=== PATIENT | female | born 1980 | race Caucasian/White ===

== ENCOUNTER 2018-04-02 17:24 | Emergency (ER) | payer OTHER ==
[2018-04-02 18:10] VITALS: BP 143/96; PULSE 96; TEMP 99; BMI 32.4
--- NOTE | 2018-04-02 18:43 | PDOC ---
History of Present Illness - General Chief Complaint: Pain Stated Complaint: FACIAL PAIN Time Seen by Provider: 04/02/18 18:13 - History of Present Illness Initial Comments: 38-year-old female without any comorbidities presents for evaluation of one day' s worth of left-sided jaw pain. She is unsure of any exacerbating or relieving factors. 04/02/18 18:38 Past History - Past Medical History Allergies/Adverse Reactions: Allergies Allergy/AdvReac Type Severity Reaction Status Date / Time No Known Allergies Allergy Verified 04/02/18 18:06 Home Medications: Ambulatory Orders Ibuprofen [Motrin -] 600 mg PO TID #30 tablet 04/02/18 Lisinopril [Prinivil] 10 mg PO ASDIR 04/02/18 COPD: No HTN: Yes - Suicide/Smoking/Psychosocial Hx Smoking History: Never smoked Hx Alcohol Use: No Drug/Substance Use Hx: No Substance Use Type: None Review of Systems - Review of Systems Comments:: GENERAL/CONSTITUTIONAL: No fever or chills. No weakness. No weight change. HEAD, EYES, EARS, NOSE AND THROAT: No change in vision. No ear pain or discharge. No sore throat. Left-sided TMJ pain. CARDIOVASCULAR: No chest pain or shortness of breath. RESPIRATORY: No cough, wheezing, or hemoptysis. GASTROINTESTINAL: No nausea, vomiting, diarrhea or constipation. No rectal bleeding. GENITOURINARY: No dysuria, frequency, or change in urination. MUSCULOSKELETAL: No joint or muscle swelling or pain. No neck or back pain. SKIN AND BREASTS: No rash or easy bruising. NEUROLOGIC: No headache, vertigo, loss of consciousness, or loss of sensation. PSYCHIATRIC: No depression or anxiety. ENDOCRINE: No increased thirst. No abnormal weight change. HEMATOLOGIC/LYMPHATIC: No anemia, easy bleeding, or history of blood clots. ALLERGIC/IMMUNOLOGIC: No hives or skin allergy. No latex allergy. 04/02/18 18:38 *Physical Exam - Vital Signs Last Vital Signs Temp Pulse Resp BP Pulse Ox 99.0 F 96 H 20 143/96 97 04/02/18 18:06 04/02/18 18:06 04/02/18 18:06 04/02/18 18:06 04/02/18 18:06 - Physical Exam Comments: GENERAL: The patient is awake, alert, and fully oriented, in no acute distress. HEAD: Normal with no signs of trauma. EYES: Pupils equal, round and reactive to light, extraocular movements intact, sclera anicteric, conjunctiva clear. ENT: Ears normal, nares patent, oropharynx clear without exudates. Moist mucous membranes. There is tenderness over the left TMJ. There is operable clicking with opening of the mouth. There is full range of motion of the TMJ. NECK: Normal range of motion, supple without lymphadenopathy, JVD, or masses. LUNGS: Breath sounds equal, clear to auscultation bilaterally. No wheezes, and no crackles. HEART: Regular rate and rhythm, normal S1 and S2 without murmur, rub or gallop. ABDOMEN: Soft, nontender, normoactive bowel sounds. No guarding, no rebound. No masses. EXTREMITIES: Normal range of motion, no edema. No clubbing or cyanosis. No cords, erythema, or tenderness. NEUROLOGICAL: Cranial nerves II through XII grossly intact. Normal speech, normal gait. PSYCH: Normal mood, normal affect. SKIN: Warm, Dry, normal turgor, no rashes or lesions noted. 04/02/18 18:39 Medical Decision Making - Medical Decision Making This is most likely TMJ. I will have her follow-up with ENT. 04/02/18 18:41 *DC/Admit/Observation/Transfer Diagnosis at time of Disposition: TMJ click - Discharge Dispostion Disposition: HOME Condition at time of disposition: Stable Decision to Admit order: No - Referrals Referrals: Pee Pino [Primary Care Provider] - Geovanny Beck MD [Staff Physician] - - Patient Instructions Printed Discharge Instructions: Temporomandibular Disorder, DI for Temporomandibular Disorder Additional Instructions: Follow-up with ear nose and throat doctor as advised. Return to the emergency room if symptoms do not resolve prior to follow-up in 1-2 days with her primary care doctor as well as your ear nose and throat doctor I have recommended for you. I prescribed him Motrin for pain please take as directed with food. - Post Discharge Activity
== END 2018-04-02 18:45 | disposition home or self-care (01) ==
LOC: JERFT 17:24
DX: M26.69 Other specified disorders of temporomandibular joint (principal); I10 Essential (primary) hypertension
CPT/HCPCS: 99281-25

== ENCOUNTER 2021-06-13 04:31 | Day surgery (SDC) | payer OTHER ==
[2021-06-09 17:34] VITALS: BMI 32.4
[2021-06-13] MEDS ORDERED: IBUPROFEN 800 MG/8 ML IJ IVPB PRN (13:36)
[2021-06-13] MEDS ORDERED: ONDANSETRON 4 MG/2 ML VIAL IVPUSH PRN (13:36)
[2021-06-13] MEDS ORDERED: oxyCODONE HCL 5 MG TABLET PO PRN (13:36)
[2021-06-13] MEDS ORDERED: IBUPROFEN 600 MG TABLET (FP) PO PRN (13:36)
[2021-06-13] MEDS ORDERED: ELECTROLYTE-148 SOLN 1,000 ML IV SCH (13:45)
[2021-06-13] MEDS ORDERED: LACTATED RINGERS SOLUTION 1,000 ML IV SCH (14:30)
[2021-06-13 17:32] VITALS: BP 120/70; PULSE 80; TEMP 98
== END 2021-06-13 16:15 | disposition home or self-care (01) ==
LOC: JASU-SURG 04:31
PROVIDERS: ATTEND Obstetrics & Gynecology
PROC: 0UJD8ZZ Inspection of Uterus and Cervix, Via Natural or Artificial Opening Endoscopic (ICD-10-PCS; 2021-06-13)
PROC: 0UB97ZX Excision of Uterus, Via Natural or Artificial Opening, Diagnostic (ICD-10-PCS; principal; 2021-06-13 11:00)
PROC: 0UDB7ZX Extraction of Endometrium, Via Natural or Artificial Opening, Diagnostic (ICD-10-PCS; 2021-06-13 11:00)
DX: N92.1 Excessive and frequent menstruation with irregular cycle (principal); D64.9 Anemia, unspecified; N84.0 Polyp of corpus uteri
CPT/HCPCS: 81025; 88305-TC; 94760

== ENCOUNTER 2022-05-01 04:24 | Inpatient (IN) | payer OTHER ==
[2022-05-10 17:51] VITALS: BMI 34.3
[2022-05-15] MEDS ORDERED: BUPIVACAINE LIPOSOME/PF (EXPAREL) 266 MG/20 ML VIAL ONE (10:00)
[2022-05-15] MEDS ORDERED: BUPIVACAINE HCL/PF 0.25% (2.5MG/ML) 10 ML VIAL ONE (10:00)
[2022-05-15] MEDS ORDERED: MIDAZOLAM HCL 2 MG/2 ML SINGLE DOSE VIAL ONE ×2 (10:13)
[2022-05-15] MEDS ORDERED: PROPOFOL 20 ML ONE (10:13)
[2022-05-15] MEDS ORDERED: LIDOCAINE HCL/PF 2% SDV 5ML VIAL ONE (10:14)
[2022-05-15] MEDS ORDERED: ROCURONIUM BROMIDE 100 MG/10 ML VIAL ONE (10:16)
[2022-05-15] MEDS ORDERED: ONDANSETRON 4 MG/2 ML VIAL ONE (10:51)
[2022-05-15] MEDS ORDERED: DEXAMETHASONE SOD PHOSPHATE 4 MG/1 ML VIAL ONE (10:51)
[2022-05-15] MEDS ORDERED: ceFAZolin SODIUM 1 GM VIAL ONE (10:51)
[2022-05-15] MEDS ORDERED: ceFAZolin SODIUM 1 GM VIAL IVPB ONE (10:52)
[2022-05-15] MEDS ORDERED: KETOROLAC TROMETHAMINE 30 MG/1 ML VIAL ONE (12:14)
[2022-05-15] MEDS ORDERED: NEOSTIGMINE METHYLSULFATE 0.5 MG/ML - 10 ML MDV ONE (12:22)
[2022-05-15] MEDS ORDERED: GLYCOPYRROLATE 0.2 MG/1 ML VIAL ONE (12:22)
[2022-05-15] MEDS ORDERED: IBUPROFEN 800 MG/8 ML IJ IVPB PRN (12:32)
[2022-05-15] MEDS ORDERED: IBUPROFEN 600 MG TABLET (FP) PO PRN (12:32)
[2022-05-15] MEDS ORDERED: ONDANSETRON 4 MG/2 ML VIAL IVPUSH PRN (12:32)
[2022-05-15] MEDS ORDERED: oxyCODONE HCL 5 MG TABLET PO PRN ×3 (12:32→13:33)
[2022-05-15] MEDS ORDERED: ALBUTEROL SO4 HFA INHALER IH PRN (12:34)
[2022-05-15] MEDS ORDERED: ACETAMINOPHEN 1000 MG/100 ML BAG IVPB PRN (12:35)
[2022-05-15] MEDS ORDERED: ELECTROLYTE-148 SOLN 1,000 ML IV SCH (12:45)
[2022-05-15] MEDS ORDERED: FENTANYL CITRATE/PF 50 MCG/ML VIAL ONE ×2 (13:24→13:30)
[2022-05-15] MEDS ORDERED: HYDROmorphone HCl 2 MG/ML VIAL IVPUSH ONE (13:37)
[2022-05-15] MEDS ORDERED: HYDROmorphone HCl 2 MG/ML VIAL ONE (13:38)
[2022-05-15] MEDS: HYDROmorphone HCL CARPU-JECT 2 MG/1 ML DISP.SYRIN IVPUSH ONE ×2 (13:40→19:59)
[2022-05-15] MEDS ORDERED: LACTATED RINGERS SOLUTION 1,000 ML IV SCH (13:45)
[2022-05-15] MEDS: oxyCODONE HCL 5 MG TABLET PO PRN ×2 (17:52→23:19)
[2022-05-15] MEDS: CEFAZOLIN 2 GM in DEXTROSE 5%-WATER - 100 ML IVPB SCH (18:41)
[2022-05-16] MEDS: CEFAZOLIN 2 GM in DEXTROSE 5%-WATER - 100 ML IVPB SCH (01:28)
[2022-05-16 08:17] LABS: HEMATOCRIT 25.9 % (32.4-45.2); MCH 22.7 pg (25.7-33.7); MEAN CELL VOLUME 73.4 fl (80-96); PLATELET COUNT 455 10^3/uL (134-434); RBC 3.54 M/mm3 (3.60-5.2); RDW 18.7 % (11.6-15.6); WHITE BLOOD COUNT 9.2 K/mm3 (4.0-10.0)
[2022-05-16] MEDS: ENOXAPARIN NA (PORCINE) 40 MG/0.4 ML DISP.SYRIN SQ SCH (09:15)
[2022-05-16 09:54] LABS: BLOOD UREA NITROGEN 7.8 mg/dL (7-18); CALCIUM 8.7 mg/dL (8.5-10.1)
[2022-05-16 09:58] LABS: CREATININE 0.5 mg/dL (0.55-1.3)
[2022-05-16] MEDS ORDERED: HYDROCHLOROTHIAZIDE 25 MG TABLET (FP) PO SCH (10:00)
[2022-05-16] MEDS ORDERED: PATIENT'S OWN MEDICATION (NON-FORMULARY) (Losartan/Hydrochlorothiazide [Losartan-Hctz 100- PO SCH (10:00)
[2022-05-16] MEDS ORDERED: LOSARTAN POTASSIUM 50 MG TABLET PO SCH (10:00)
[2022-05-16] MEDS ORDERED: METOPROLOL TARTRATE 50 MG TABLET (FP) PO SCH (10:00)
[2022-05-16] MEDS: ACETAMINOPHEN 500 MG TABLET (FP) PO SCH ×2 (12:54→19:36)
[2022-05-16 22:24] VITALS: TEMP 98.9
[2022-05-17] MEDS: ACETAMINOPHEN 500 MG TABLET (FP) PO SCH ×2 (01:48→09:27)
[2022-05-17] MEDS: ENOXAPARIN NA (PORCINE) 40 MG/0.4 ML DISP.SYRIN SQ SCH (09:27)
[2022-05-17 09:37] VITALS: BP 130/81; PULSE 78
== END 2022-05-17 09:35 | disposition home or self-care (01) | DRG 513 ==
LOC: UNDOADMIN 04:24 → J2C 04:24 → J3W 05-15 14:28
PROVIDERS: ADMIT Obstetrics & Gynecology; ATTEND Obstetrics & Gynecology
PROC: 0DNW0ZZ Release Peritoneum, Open Approach (ICD-10-PCS; 2022-05-15)
PROC: 0UT70ZZ Resection of Bilateral Fallopian Tubes, Open Approach (ICD-10-PCS; 2022-05-15)
PROC: 0UT90ZL Resection of Uterus, Supracervical, Open Approach (ICD-10-PCS; principal; 2022-05-15 10:00)
DX: N92.1 Excessive and frequent menstruation with irregular cycle (principal); D25.9 Leiomyoma of uterus, unspecified; N73.6 Female pelvic peritoneal adhesions (postinfective)
CPT/HCPCS: 36415; 80048; 81025; 85027; 86850; 86900; 86901; 86922; 94010; 94760

== ENCOUNTER 2022-06-01 03:42 | Emergency (ER) | payer OTHER ==
[2022-06-01 04:08] VITALS: RESP 20; TEMP 98.2; BMI 34.0
[2022-06-01] MEDS ORDERED: ACETAMINOPHEN 1000 MG/100 ML BAG IVPB ONE (04:17)
[2022-06-01] MEDS ORDERED: SODIUM CHLORIDE 0.9% 500 ML INFUS.BAG IV ONE (04:17)
[2022-06-01] MEDS ORDERED: ACETAMINOPHEN INJECTION 100 ML IVPB ONE (04:33)
[2022-06-01] MEDS ORDERED: CEPHALEXIN MONOHYDRATE 500 MG CAPSULE (UD) PO ONE (04:58)
[2022-06-01 05:39] LABS: EOS % 2.7 % (0-4.5); HEMATOCRIT 29.2 % (32.4-45.2); HEMOGLOBIN 9.2 GM/dL (10.7-15.3); MCH 23.1 pg (25.7-33.7); MCHC 31.4 g/dl (32.0-36.0); MEAN CELL VOLUME 73.6 fl (80-96); MEAN PLT VOLUME 8.2 fl (7.5-11.1); MONO % 6.7 % (3.8-10.2); NEUT % 57.6 % (42.8-82.8); PLATELET COUNT 444 10^3/uL (134-434); RBC 3.97 M/mm3 (3.60-5.2); RDW 20.5 % (11.6-15.6)
[2022-06-01] MEDS ORDERED: CEPHALEXIN MONOHYDRATE 500 MG CAPSULE (UD) ONE (05:45)
[2022-06-01 06:03] LABS: ALBUMIN 3.4 g/dl (3.4-5.0); BLOOD UREA NITROGEN 16.5 mg/dL (7-18); CALCIUM 9.4 mg/dL (8.5-10.1)
[2022-06-01 06:06] LABS: CREATININE 0.5 mg/dL (0.55-1.3)
[2022-06-01 06:08] LABS: BILIRUBIN,TOTAL 0.3 mg/dL (0.2-1); TOT PROT 7.7 g/dl (6.4-8.2)
[2022-06-01 06:36] VITALS: BP 118/53; PULSE 65
[2022-06-01 09:19] LABS: ANISOCYTOSIS 1+; MACROCYTOSIS 0
== END 2022-06-01 06:36 | disposition home or self-care (01) ==
LOC: JER 03:42
PROC: 3E0333Z Introduction of Anti-inflammatory into Peripheral Vein, Percutaneous Approach (ICD-10-PCS; principal; 2022-06-01)
DX: L03.311 Cellulitis of abdominal wall (principal)
CPT/HCPCS: 36415; 80053; 85025; 99284-25; C9803-CS; U0003; U0005

== ENCOUNTER 2023-10-14 17:48 | Emergency (ER) | payer OTHER ==
[2023-10-14 18:09] VITALS: BP 149/85; PULSE 70; RESP 18; TEMP 98.3; BMI 29.8
[2023-10-14] MEDS ORDERED: DIPHTH,PERTUSS(ACELL),TET 0.5 ML DISP.SYRIN IM ONE (18:45)
[2023-10-14] MEDS ORDERED: ACETAMINOPHEN 500 MG TABLET (FP) PO ONE (18:48)
== END 2023-10-14 19:45 | disposition home or self-care (01) ==
LOC: JERFT 17:48
PROC: 0HQGXZZ Repair Left Hand Skin, External Approach (ICD-10-PCS; principal; 2023-10-14)
PROC: 3E0234Z Introduction of Serum, Toxoid and Vaccine into Muscle, Percutaneous Approach (ICD-10-PCS; 2023-10-14)
DX: S61.012A Laceration without foreign body of left thumb without damage to nail, initial encounter (principal); W26.8XXA Contact with other sharp object(s), not elsewhere classified, initial encounter
CPT/HCPCS: 12001-25; 90471; 90715; 99282-25

== ENCOUNTER 2023-10-24 08:40 | Emergency (ER) | payer OTHER ==
[2023-10-24 08:52] VITALS: BP 135/80; PULSE 73; RESP 18; TEMP 98.4; BMI 27.4
== END 2023-10-24 09:08 | disposition home or self-care (01) ==
LOC: JERFT 08:40
DX: Z48.02 Encounter for removal of sutures (principal)
CPT/HCPCS: 99281-25